=== PATIENT | female | born 1980 | race American Indian/Alaskan Native ===

== ENCOUNTER 2018-03-27 22:05 | Emergency (ER) | payer MEDICAID ==
[2018-03-27 22:45] VITALS: BP 113/60
[2018-03-28 00:10] LABS: Bacteria,Urine 1+ /HPF (Negative); Bilirubin,Urine NEG (Negative); Blood,Urine SM (Negative); Color,Urine Amber (Yellow); Hyaline Casts,Urine 3 /LPF; Mucus,Urine 3+ /HPF
[2018-03-28] MEDS ORDERED: ZITHROMAX PO ONE (00:58)
--- NOTE | 2018-03-28 00:58 | Emergency Department Report ---
ED Female HPI - General Chief complaint: Vaginal Bleeding Stated complaint: ABD PAIN Time Seen by Provider: 03/28/18 00:23 Source: patient Mode of arrival: Ambulatory Limitations: No Limitations - History of Present Illness Initial comments: 38-year-old -[place] female reports that she has lower abdominal pain 1 week. She reports she has cold-like symptoms for the last few days. She reports that her boyfriend was diagnosed and treated for STD last week. She reports he had tested positive for chlamydia. Patient admits to nasal congest ion and sore throat and cough. Patient denies any nausea no vomiting. MD Complaint: pelvic pain, possible STD Consistency: intermittent Improves with: none Worsens with: none Are you Now?: No - Related Data Previous Rx's Medication Instructions Recorded Last Taken Type traMADol [Ultram 50 MG tab] 50 mg PO Q6HR PRN #10 tablet 02/16/18 Unknown Rx Benzonatate [Tessalon Perle] 100 mg PO TID PRN #15 capsule 03/28/18 Unknown Rx Doxycycline [Vibramycin CAP] 100 mg PO Q12HR #20 capsule 03/28/18 Unknown Rx metroNIDAZOLE [Flagyl] 500 mg PO Q8HR #21 tablet 03/28/18 Unknown Rx Allergies Allergy/AdvReac Type Severity Reaction Status Date / Time cephalexin [From Keflex] Allergy Hives Verified 02/16/18 13:42 diflunisal [From Dolobid] Allergy Unknown Verified 02/16/18 13:42 Sulfa (Sulfonamide Allergy Unknown Verified 02/16/18 13:42 Antibiotics) ED Review of Systems ROS: Stated complaint: ABD PAIN Other details as noted in HPI Comment: All other systems reviewed and negative Respiratory: cough Gastrointestinal: abdominal pain Genitourinary: discharge ED Past Medical Hx - Past Medical History Previous Medical History?: No - Surgical History Past Surgical History?: Yes Additional Surgical History: - Social History Smoking Status: Current Every Day Smoker Substance Use Type: Alcohol - Medications Home Medications: Home Medications Medication Instructions Recorded Confirmed Last Taken Type traMADol [Ultram 50 MG tab] 50 mg PO Q6HR PRN #10 tablet 02/16/18 Unknown Rx Benzonatate [Tessalon Perle] 100 mg PO TID PRN #15 capsule 03/28/18 Unknown Rx Doxycycline [Vibramycin CAP] 100 mg PO Q12HR #20 capsule 03/28/18 Unknown Rx metroNIDAZOLE [Flagyl] 500 mg PO Q8HR #21 tablet 03/28/18 Unknown Rx ED Physical Exam - General Limitations: No Limitations General appearance: alert, in no apparent distress - Head Head exam: Present: atraumatic, normocephalic - Eye Eye exam: Present: EOMI - ENT ENT exam: Present: mucous membranes moist - Respiratory Respiratory exam: Present: normal lung sounds bilaterally. Absent: respiratory distress - Cardiovascular Cardiovascular Exam: Present: regular rate, normal rhythm. Absent: systolic murmur, diastolic murmur, rubs, gallop - GI/Abdominal GI/Abdominal exam: Present: soft. Absent: tenderness - External exam: Present: normal external exam Speculum exam: Present: vaginal discharge, cervical discharge Bi-manual exam: Present: normal bi-manual exam - Neurological Exam Neurological exam: Present: alert, oriented X3 - Psychiatric Psychiatric exam: Present: normal affect, normal mood - Skin Skin exam: Present: warm, dry, intact, normal color. Absent: rash ED Course Vital Signs 03/27/18 22:40 Temperature 98.7 F Pulse Rate 83 Respiratory 16 Rate Blood Pressure 113/60 O2 Sat by Pulse 99 Oximetry ED Medical Decision Making - Medical Decision Making Patient has been evaluated by this provider in fast track. Patient is given gentamicin 240 mg IM and azithromycin 1 g. Patient tested positive for Trichomonas bacterial vaginosis and pmn. Patient be discharged home on doxycycline and Flagyl as well as Tessalon Perles for her cough. I instructed patient to refrain from intercourse for the next 2 weeks to follow- up at the health department to get tested for HIV, hepatitis, herpes and syphilis. Patient verbalizes understanding Critical care attestation.: If time is entered above; I have spent that time in minutes in the direct care of this critically ill patient, excluding procedure time. ED Disposition Clinical Impression: Trichomonas vaginalis infection, BV (bacterial vaginosis), Cervicitis and endocervicitis, URI (upper respiratory infection) Disposition: -01 TO HOME OR SELFCARE Is pt being admited?: No Does the pt Need Aspirin: No Condition: Stable Instructions: Bacterial Vaginosis (ED), Cervicitis (ED), Trichomoniasis (ED) Additional Instructions: Please complete antibiotics as prescribed. Please increase her water intake. Please do not have intercourse for the next 2 weeks. I advised she did go to the health department to get tested for HIV, hepatitis, syphilis, herpes. Prescriptions: Benzonatate [Tessalon Perle] 100 mg PO TID PRN #15 capsule PRN Reason: Cough Doxycycline [Vibramycin CAP] 100 mg PO Q12HR #20 capsule metroNIDAZOLE [Flagyl] 500 mg PO Q8HR #21 tablet Referrals: LAVINIA SAMANO DO [Primary Care Provider] - 3-5 Days [facility] [Outside] - 3-5 Days Forms: STI Treatment and Prevention
[2018-03-28] MEDS ORDERED: GENTAMICIN IM ONE (01:01)
[2018-03-28 01:50] LABS: HCG Qualitative,Urine Negative (Negative)
== END 2018-03-28 02:05 | disposition home or self-care (01) ==
LOC: ED 22:05
DX: A59.01 Trichomonal vulvovaginitis (principal); J06.9 Acute upper respiratory infection, unspecified; F17.200 Nicotine dependence, unspecified, uncomplicated; Z88.1 Allergy status to other antibiotic agents; Z88.2 Allergy status to sulfonamides; Z88.5 Allergy status to narcotic agent
CPT/HCPCS: 81001; 81025; 87086; 87210; 87591; 96372; 99284; J1580

== ENCOUNTER 2018-12-09 19:44 | Emergency (ER) | payer MEDICAID ==
[2018-12-09 21:02] VITALS: BP 129/80
[2018-12-09] MEDS ORDERED: TYLENOL #3 PO ONE (21:17)
--- NOTE | 2018-12-09 21:22 | Emergency Department Report ---
ED ENT HPI - General Chief complaint: Dental/Oral Stated complaint: ABSCESS BOTTOM LT MOUTH Time Seen by Provider: 12/09/18 20:58 Source: patient Mode of arrival: Ambulatory Limitations: No Limitations - History of Present Illness Initial comments: Patient is a 38-year-old female presents emergency room with complaints of left lower dental pain that began several days ago. pt states that she cracked the left tooth and is not sure when it happened. she states she last saw a dentist a year ago. she denies any fever, chills, nausea, vomiting. she denies any PMHx. she states she has allergy to keflex, sulfa, diflunisal. she states she is currently on her menstrual cycle. - Related Data Previous Rx's Medication Instructions Recorded Last Taken Type traMADol [Ultram 50 MG tab] 50 mg PO Q6HR PRN #10 tablet 02/16/18 Unknown Rx Benzonatate [Tessalon Perle] 100 mg PO TID PRN #15 capsule 03/28/18 Unknown Rx DOXYCYCLINE Hyclate [Vibramycin 100 mg PO Q12HR #20 capsule 03/28/18 Unknown Rx CAP] metroNIDAZOLE [Flagyl] 500 mg PO Q8HR #21 tablet 03/28/18 Unknown Rx Clindamycin [Clindamycin CAP] 450 mg PO TID 7 Days #63 capsule 12/09/18 Unknown Rx Ibuprofen [Motrin 600 MG tab] 600 mg PO Q8H PRN #14 tablet 12/09/18 Unknown Rx Allergies Allergy/AdvReac Type Severity Reaction Status Date / Time cephalexin [From Keflex] Allergy Hives Verified 02/16/18 13:42 diflunisal [From Dolobid] Allergy Unknown Verified 02/16/18 13:42 Sulfa (Sulfonamide Allergy Unknown Verified 02/16/18 13:42 Antibiotics) ED Dental HPI - General Chief complaint: Dental/Oral Stated complaint: ABSCESS BOTTOM LT MOUTH Time Seen by Provider: 12/09/18 20:58 Source: patient Mode of arrival: Ambulatory Limitations: No Limitations - Related Data Previous Rx's Medication Instructions Recorded Last Taken Type traMADol [Ultram 50 MG tab] 50 mg PO Q6HR PRN #10 tablet 02/16/18 Unknown Rx Benzonatate [Tessalon Perle] 100 mg PO TID PRN #15 capsule 03/28/18 Unknown Rx DOXYCYCLINE Hyclate [Vibramycin 100 mg PO Q12HR #20 capsule 03/28/18 Unknown Rx CAP] metroNIDAZOLE [Flagyl] 500 mg PO Q8HR #21 tablet 03/28/18 Unknown Rx Clindamycin [Clindamycin CAP] 450 mg PO TID 7 Days #63 capsule 12/09/18 Unknown Rx Ibuprofen [Motrin 600 MG tab] 600 mg PO Q8H PRN #14 tablet 12/09/18 Unknown Rx Allergies Allergy/AdvReac Type Severity Reaction Status Date / Time cephalexin [From Keflex] Allergy Hives Verified 02/16/18 13:42 diflunisal [From Dolobid] Allergy Unknown Verified 02/16/18 13:42 Sulfa (Sulfonamide Allergy Unknown Verified 02/16/18 13:42 Antibiotics) ED Review of Systems ROS: Stated complaint: ABSCESS BOTTOM LT MOUTH Other details as noted in HPI Comment: All other systems reviewed and negative ED Past Medical Hx - Past Medical History Previous Medical History?: No Hx Hypertension: No Hx CVA: No Hx Heart Attack/AMI: No Hx Congestive Heart Failure: No Hx Diabetes: No Hx Deep Vein Thrombosis: No Hx Pulmonary Embolism: No Hx GERD: No Hx Liver Disease: No Hx Renal Disease: No Hx of Cancer: No Hx Sickle Cell Disease: No Hx Arthritis: No Hx Headaches / Migraines: No Hx Seizures: No Hx Kidney Stones: No Hx Psychiatric Treatment: No Hx Asthma: No Hx COPD: No Hx Tuberculosis: No Hx Dementia: No Hx HIV: No - Surgical History Past Surgical History?: No Hx Coronary Stent: No Hx Open Heart Surgery: No Hx Pacemaker: No Hx Internal Defibrillator: No Hx Cholecystectomy: No Hx Appendectomy: No Hx Breast Surgery: No Additional Surgical History: - Social History Smoking Status: Current Every Day Smoker Substance Use Type: Alcohol - Medications Home Medications: Home Medications Medication Instructions Recorded Confirmed Last Taken Type traMADol [Ultram 50 MG tab] 50 mg PO Q6HR PRN #10 tablet 02/16/18 Unknown Rx Benzonatate [Tessalon Perle] 100 mg PO TID PRN #15 capsule 03/28/18 Unknown Rx DOXYCYCLINE Hyclate [Vibramycin 100 mg PO Q12HR #20 capsule 03/28/18 Unknown Rx CAP] metroNIDAZOLE [Flagyl] 500 mg PO Q8HR #21 tablet 03/28/18 Unknown Rx Clindamycin [Clindamycin CAP] 450 mg PO TID 7 Days #63 capsule 12/09/18 Unknown Rx Ibuprofen [Motrin 600 MG tab] 600 mg PO Q8H PRN #14 tablet 12/09/18 Unknown Rx ED Physical Exam - General Limitations: No Limitations General appearance: alert, in no apparent distress - Head Head exam: Present: atraumatic, normocephalic - Eye Eye exam: Present: normal appearance - ENT ENT exam: Present: normal orophraynx, mucous membranes moist, other (cracked tooth to the left lower side, small amount of edema to the left lower gum, very poor dentition, several cracked teeth present, uvula is midline, no uvular edema) ED Course Vital Signs 12/09/18 12/09/18 20:59 21:24 Temperature 98.2 F Pulse Rate 65 Respiratory 18 18 Rate Blood Pressure 129/80 [Right] O2 Sat by Pulse 98 Oximetry ED Medical Decision Making - Medical Decision Making Patient is a 38-year-old female presents emergency room with complaints of left lower dental pain that began several days ago. pt states that she cracked the left tooth and is not sure when it happened. she states she last saw a dentist a year ago. she denies any fever, chills, nausea, vomiting. she denies any PMHx. she states she has allergy to keflex, sulfa, diflunisal. she states she is currently on her menstrual cycle. VSS. pt given prescription for clindamycin and ibuprofen. on exam: cracked tooth to the left lower side, small amount of edema to the left lower gum, very poor dentition, several cracked teeth present, uvula is midline, no uvular edema. examination consistent with dental abscess. advised pt to please take medication as prescribed. please follow-up with a dentist in the next 2-3 days. It is very important that you follow up with a dentist for permanent solution. return to the emergency room for any new or worsening symptoms. Critical care attestation.: If time is entered above; I have spent that time in minutes in the direct care of this critically ill patient, excluding procedure time. ED Disposition Clinical Impression: Cracked tooth, Dental abscess Disposition: TO HOME OR SELFCARE Is pt being admited?: No Does the pt Need Aspirin: No Condition: Stable Instructions: Dental Abscess (ED) Additional Instructions: Please take medication as prescribed. please follow-up with a dentist in the next 2-3 days. It is very important that you follow up with a dentist for permanent solution. return to the emergency room for any new or worsening symptoms. Prescriptions: Clindamycin [Clindamycin CAP] 450 mg PO TID 7 Days #63 capsule Ibuprofen [Motrin 600 MG tab] 600 mg PO Q8H PRN #14 tablet PRN Reason: Pain Referrals: [facility] [Outside] - 2-3 Days Time of Disposition: 21:22 Print Language: CITIZEN OF [place]
== END 2018-12-09 21:52 | disposition home or self-care (01) ==
LOC: ED 19:44
DX: K04.7 Periapical abscess without sinus (principal); K03.81 Cracked tooth; F17.200 Nicotine dependence, unspecified, uncomplicated; Z79.899 Other long term (current) drug therapy; Z88.2 Allergy status to sulfonamides; Z88.8 Allergy status to other drugs, medicaments and biological substances
CPT/HCPCS: 99282

== ENCOUNTER 2021-06-25 16:25 | Emergency (ER) | payer OTHER, MEDICAID ==
[2021-06-25 18:08] VITALS: BP 126/76
[2021-06-25] MEDS ORDERED: IBUPROFEN 600 MG TAB PO ONE (19:17)
[2021-06-25] MEDS ORDERED: ACETAMINOPHEN 500 MG TAB PO ONE (19:17)
[2021-06-25] MEDS ORDERED: diazePAM 5 MG TAB PO ONE (19:17)
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
== END 2021-06-25 20:47 | disposition home or self-care (01) ==
LOC: ED 16:25
DX: S39.012A Strain of muscle, fascia and tendon of lower back, initial encounter (principal); S16.1XXA Strain of muscle, fascia and tendon at neck level, initial encounter; M62.830 Muscle spasm of back; Z88.1 Allergy status to other antibiotic agents; Z91.09 Other allergy status, other than to drugs and biological substances; V89.2XXA Person injured in unspecified motor-vehicle accident, traffic, initial encounter; Y93.89 Activity, other specified; Y92.89 Other specified places as the place of occurrence of the external cause; Y99.8 Other external cause status
CPT/HCPCS: 99282